=== PATIENT | female | born 1990 | race Caucasian/White ===

== ENCOUNTER 2019-08-26 09:12 | Outpatient (RCR) | payer BC, SELFPAY ==
[2019-07-30 16:20] VITALS: BP 120/66; PULSE 91
[2019-08-06 16:56] VITALS: BP 99/57; PULSE 90
[2019-08-13 16:43] VITALS: BP 109/59; PULSE 86
[2019-08-19 10:18] VITALS: BP 111/64; PULSE 93
--- NOTE | 2019-08-19 10:18 | PC.NURSE ---
Occasional contractions seen on monitor. Pt states that she feels occasional contractions, but nothing regular or painful.
[2019-08-26 09:43] VITALS: BP 120/66; PULSE 81
== END 2019-10-17 14:35 | disposition home or self-care (01) ==
LOC: ANHOBOP 09:12
PROVIDERS: PCP Family Medicine; Visit Provider Obstetrics & Gynecology
DX: O69.89X0 Labor and delivery complicated by other cord complications, not applicable or unspecified (principal); Z3A.34 34 weeks gestation of pregnancy; Z3A.35 35 weeks gestation of pregnancy; Z3A.36 36 weeks gestation of pregnancy; Z3A.37 37 weeks gestation of pregnancy
CPT/HCPCS: 59025

== ENCOUNTER 2019-09-03 10:53 | Outpatient (CLI) | payer BC, SELFPAY ==
[2019-09-03 11:18] LABS: Hematocrit 38.1 % (37.0-47.0); Hemoglobin 12.7 g/dL (12.0-15.0); Mean Corpuscular HGB Conc 33.3 g/dl (32-36); Mean Corpuscular Hemoglobin 29.9 pg (26-34); Mean Corpuscular Volume 89.6 fl (80-100); Mean Platelet Volume 10.2 fl (7.4-10.4); Platelet Count Result 250 k/mm3 (150-375); Red Blood Count 4.25 M/mm3 (4.2-5.4); Red Cell Distribution Width 13.6 % (11.5-14.5); White Blood Count 11.5 K/mm3 (4.5-10.0)
--- NOTE | 2019-09-03 23:23 | PM.IMHP ---
H&P: HPI History of Present Illness Chief complaint: C/S Narrative: 29-year-old 3 para 2001 at 39 1/7 weeks, due on 09/10/19 based on ultrasound exam at 7 weeks 6 days gestation. Her last menstrual period was uncertain. Her was complicated by the early diagnosis of a vanishing twin. Ultrasound exam at 20 weeks demonstrated a single umbilical artery, so she has been followed with ultrasound and nonstress testing. Her has been otherwise uncomplicated. Because a previous child had pulmonary stenosis and an ASD, she had a echocardiogram, which appeared to be normal. Ultrasound exam in our office suggests normal anatomy. Blood type is Opos, she is Rubella Immune, Hep B SAg negative, RPR negative and HIV negative. Testing for gonorrhea and chlamydia has been negative as well. GBS culture was positive. GCT was normal at 88. Her CFS was negative previously. She declined aneuploidy screening in this . Review of Systems Review of Systems: All systems reviewed & are unremarkable except as noted in HPI and below PMFSH Surgical History Surgical History (Updated 09/03/19 @ 23:32 by Ezequiel Kim MD) History of delivery Hx of inguinal hernia repair Family History Family History Mother Hypertension Sibling Depression Father Borderline diabetes mellitus Daughter Heart murmur Atrial septal defect Pulmonary valve stenosis Other Diabetes mellitus Social History Social History Smoking status: Never smoker Alcohol intake: never Substance use: never Spiritual care concerns: No Comments Past OB: x 2 with larger 8#9oz. Past DRYWALL FINISHER FOREMAN: Menarche at 10 with menses every 30-35 days. No history of abnormal pap or of STI. Allergies: Sulfa causes HIVES. Meds Home Medications and Allergies Home Medications Medication Instructions Recorded Confirmed Type PNV cmb#95-ferrous fumarate-FA 1 tablet PO DAILY 08/14/19 08/14/19 History [] famotidine [Pepcid AC] 20 mg PO BID 08/14/19 08/14/19 History Allergies Allergy/AdvReac Type Severity Reaction Status Date / Time Sulfa (Sulfonamide Allergy Intermediate Hives Verified 08/14/19 15:44 Antibiotics) H&P: Results Labs Labs: Short CBC 09/03/19 Range/Units 11:11 WBC 11.5 H (4.5-10.0) K/mm3 Hgb 12.7 (12.0-15.0) g/dL Hct 38.1 (37.0-47.0) % Plt Count 250 (150-375) k/mm3 Assessment and Plan Assessment and plan (1) History of delivery, currently : Code(s): O34.219 - Maternal care for unspecified type scar from previous delivery Status: Acute Assessment and Plan: I have offered her a repeat . She understands risks of surgery to include risks of anesthesia, risks of pain, infection, bleeding, blood products, thromboembolic phenomena and damage to adjacent structures such as bowel, bladder, ureters, blood vessels and nerves. She understands all these risks and elects to proceed with surgery. (2) GBS (group B Streptococcus carrier), +RV culture, currently : Code(s): O99.820 - Streptococcus B carrier state complicating Status: Acute Assessment and Plan: Covered by preoperative cefazolin.
[2019-09-04 09:00] LABS: Rapid Plasma Reagin Non-Reactive (NonReactive)
== END 2019-09-03 10:54 | disposition home or self-care (01) ==
PROVIDERS: PCP Family Medicine; Visit Provider Obstetrics & Gynecology
DX: Z34.93 Encounter for supervision of normal pregnancy, unspecified, third trimester (principal); Z3A.00 Weeks of gestation of pregnancy not specified
CPT/HCPCS: 36415; 85027; 86592; 86850; 86900; 86901

== ENCOUNTER 2019-09-04 11:21 | Inpatient (IN) | payer BC, SELFPAY ==
--- NOTE | 2019-08-14 16:07 | PC.NURSE ---
VERIFIED WITH OR SCHEDULE AND PATIENT --C/S ON 09/04/19 AT 1330 PATIENT GIVEN REQUISITION FOR LAB DRAW ON 09/03/19
--- NOTE | 2019-09-03 23:23 | P.HP_ITS ---
H&P: HPI History of Present Illness Chief complaint: C/S Narrative: 29-year-old 3 para 2001 at 39 1/7 weeks, due on 09/10/19 based on ultrasound exam at 7 weeks 6 days gestation. Her last menstrual period was uncertain. Her was complicated by the early diagnosis of a vanishing twin. Ultrasound exam at 20 weeks demonstrated a single umbilical artery, so she has been followed with ultrasound and nonstress testing. Her has been otherwise uncomplicated. Because a previous child had pulmonary stenosis and an ASD, she had a echocardiogram, which appeared to be normal. Ultrasound exam in our office suggests normal anatomy. Blood type is Opos, she is Rubella Immune, Hep B SAg negative, RPR negative and HIV negative. Testing for gonorrhea and chlamydia has been negative as well. GBS culture was positive. GCT was normal at 88. Her CFS was negative previously. She declined aneuploidy screening in this . Review of Systems Review of Systems: All systems reviewed & are unremarkable except as noted in HPI and below PMFSH Surgical History Surgical History (Updated 09/03/19 @ 23:32 by Ezequiel Kim MD) History of delivery Hx of inguinal hernia repair Family History Family History Mother Hypertension Sibling Depression Father Borderline diabetes mellitus Daughter Heart murmur Atrial septal defect Pulmonary valve stenosis Other Diabetes mellitus Social History Social History Smoking status: Never smoker Alcohol intake: never Substance use: never Spiritual care concerns: No Comments Past OB: x 2 with larger 8#9oz. 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 No history of abnormal pap or of STI. Allergies: Sulfa causes HIVES. Meds Home Medications and Allergies Home Medications Medication Instructions Recorded Confirmed Type PNV cmb#95-ferrous fumarate-FA 1 tablet PO DAILY 08/14/19 08/14/19 History [] famotidine [Pepcid AC] 20 mg PO BID 08/14/19 08/14/19 History Allergies Allergy/AdvReac Type Severity Reaction Status Date / Time Sulfa (Sulfonamide Allergy Intermediate Hives Verified 08/14/19 15:44 Antibiotics) H&P: Results Labs Labs: Short CBC 09/03/19 Range/Units 11:11 WBC 11.5 H (4.5-10.0) K/mm3 Hgb 12.7 (12.0-15.0) g/dL Hct 38.1 (37.0-47.0) % Plt Count 250 (150-375) k/mm3 Assessment and Plan Assessment and plan (1) History of delivery, currently : Code(s): O34.219 - Maternal care for unspecified type scar from previous delivery Status: Acute Assessment and Plan: I have offered her a repeat . She understands risks of surgery to include risks of anesthesia, risks of pain, infection, bleeding, blood products, thromboembolic phenomena and damage to adjacent structures such as bowel, bladder, ureters, blood vessels and nerves. She understands all these risks and elects to proceed with surgery. (2) GBS (group B Streptococcus carrier), +RV culture, currently : Code(s): O99.820 - Streptococcus B carrier state complicating Status: Acute Assessment and Pl
[2019-09-04] VITALS (62 sets, daily range): BP systolic 69–131; BP diastolic 34–83; PULSE 71–124; RESP 16–20; TEMP 36.1–36.7; O2SAT 96–100; BMI 43.0
--- NOTE | 2019-09-04 12:03 | WPDANESEPPF ---
Anes - Initial Pre Proc Eval Procedure: Operation Date: 09/04/19 13:30 Proposed Procedures p Repeat Section - Ezequiel Kim MD Date/Time: 09/04/19 12:03 Surgeon: Ezequiel Kim MD Pre Op Diagnosis: C SECTION Patient Data Age: 29 Gender: F Height: Weight: Last Vital Signs Pulse 82 09/04/19 11:49 BP 117/68 09/04/19 11:49 Pulse Ox 99 09/04/19 11:58 Allergies Allergy/AdvReac Type Severity Reaction Status Date / Time Sulfa (Sulfonamide Allergy Intermediate Hives Verified 08/14/19 15:44 Antibiotics) Home Medications Medication Instructions Recorded Confirmed Type PNV cmb#95-ferrous fumarate-FA 1 tablet PO DAILY 08/14/19 08/14/19 History [] famotidine [Pepcid AC] 20 mg PO BID 08/14/19 08/14/19 History Patient hx anesthesia problems: post op nausea/vomiting Family hx anesthesia problems: none PMFSH Surgical History Surgical History History of delivery Hx of inguinal hernia repair Family History Family History Mother Hypertension Sibling Depression Father Borderline diabetes mellitus Daughter Heart murmur Atrial septal defect Pulmonary valve stenosis Other Diabetes mellitus Social History Social History Smoking status: Never smoker Alcohol intake: never Substance use: never Spiritual care concerns: No Anes - Eval Final PreProcedure Day of Procedure 09/04/19 12:03 Patient weight: morbidly obese Heart: regular rate and rhythm Lungs: clear to auscultation Airway: Mallampati scale class 1 Neurological: alert and oriented Last oral intake: >/= 8 hours ASA classification: III Emergent: no Anesthetic plan: proceed Anesthesia type and monitoring: regional spinal and standard monitoring Informed Consent: The patient's anesthetic plan and its attendant risks and benefits were discussed with the patient/family/POA. Questions were solicited and answers provided to the satisfaction of the patient/family/POA.
[2019-09-04] MEDS: LACTATED RINGERS 1,000 ML 125 ML IV CONT (12:15)
--- NOTE | 2019-09-04 12:16 | LDADM ---
This patient, Karey Sparks, was admitted to Labor/Delivery/Recovery 120 on 09/04/19 at 11:21. Plans for labor, pain management and were discussed with patient. Patient/family oriented to hospital policies and general routines including ID bracelet, bed and alarms, visiting hours, pain management, procedures, bathroom and other care routines, personal items, smoking policy, room service/diet and guest tray routines, security routines, call light, and visiting hours. Patient/Family are encouraged to report perceived risks to care and to ask questions if they do not understand what they are told or what they should do. See OBIX for further documentation.
[2019-09-04] MEDS: LACTATED RINGERS 1,000 ML 999 ML IV CONT (12:32)
[2019-09-04] MEDS: ceFAZolin 3 GM/D5W 100 ML 100 ML IVPB (12:52)
--- NOTE | 2019-09-04 12:56 | WPDHPUPDATE1 ---
History and Physical Update Update Date/Time: 09/04/19 12:56 History and Physical has been reviewed, including an updated exam of the patient. There are NO changes in the patient's condition. Risks, benefits, and alternatives have been discussed and questions answered. Patient agrees to proceed with procedure.
--- NOTE | 2019-09-04 14:21 | PM.OBPRVD ---
OB - Delivery Note Procedure Delivery date: 09/04/19 Procedure: Procedures Operation Date: 09/04/19 13:30 Actual Procedures Side Surgeon p Section Ezequiel Kim MD Repeat LTCS Specimen: Yes (cord blood, placenta) Estimated blood loss (mL): 350 Anesthesia type: Spinal Disposition: PACU Complications: None Narrative: The patient was taken to the operating room where she was prepared and draped in the usual sterile fashion in dorsal supine position with a leftward tilt. She received cefazolin preoperatively. Spinal anesthesia was found to be adequate. A Pfannenstiel skin incision was made along the previous scar line and was carried through to the underlying layer of the fascia. The fascia was incised in the midline and the incision was extended laterally. The fascia was dissected free of the underlying rectus muscles. The rectus muscles were in the midline. The peritoneum was identified, tented up and entered sharply. The peritoneal incision was extended superiorly and inferiorly with good visualization of the bladder. The bladder blade was placed. The vesicouterine peritoneum was identified, tented up and entered sharply. The incision was extended laterally and the bladder flap was developed. The bladder blade was replaced. The uterus was then incised sharply in a transverse fashion along the lower uterine segment. The incision was extended laterally. The infant's head was delivered atraumatically to the sterile field, followed by the body. The nose and mouth were bulb suctioned. After a delay, the cord was clamped and cut. The infant was handed off the field. Cord blood was collected. The placenta was removed manually and was passed off the field. The uterus was exteriorized and cleared of all clots and debris. The uterine incision was reapproximated using 0 Monocryl in a running, locked fashion. Excellent hemostasis resulted as did excellent reapproximation of the normal anatomy. The uterus was returned the abdomen. The pelvis was irrigated copiously with warmed normal saline. Rigorous hemostasis was assured. The fascial layer was reapproximated using 0 Vicryl in a running fashion. The skin was closed with a running, subcuticular stitch of 4 0 Vicryl. Dermaflex was applied externally. Sponge, lap, needle and instrument counts were correct. The patient was taken to the recovery room in stable condition. The went to the nursery in stable condition. I was present and scrubbed the entire procedure. Baby Date of : 09/04/19 Time of : 14:22 Weeks of gestation at delivery: 39 Infant gender: Male Weight (pounds): 7 Weight (ounces): 9 Placenta delivery description: Manual Removal and Normal Configuration cord vessel description: 2 Vessels score one minute: 8 score five minutes: 9
--- NOTE | 2019-09-04 14:26 | PM.OBDSVD ---
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 Status: Acute OB - DS: Summary OB Procedures : None OB Procedures Intrapartum: Spontaneous Vag Delivery OB Procedures: : None Peripartum Data Procedures: Procedures Operation Date: 09/04/19 13:30 Actual Procedures Side Surgeon p Section Ezequiel Kim MD Time Spent with Patient Time attestation: Total time spent providing and/or coordinating discharge services: Discharge Plan Discharge Attending physician on discharge: Ezequiel Kim Consulting providers: Arnel Aly Discharging Clinician: Ezequiel Kim Patient Disposition: Home, Self-Care Activity: may shower, may drive after 2 weeks and pelvic rest Diet: regular Wound Care Instructions: incision open to air Discharge Instructions: Call or return if temperature above 100.4? F, increased abdominal pain, increased vaginal bleeding or any new problems. Education: Mom and Baby Guide Given to: Mother Follow-Up: Call your delivering provider's office for an appointment to be seen in: 1 Week Mom and baby should come to the [facility] for the follow-up appointment. Appointment Date/Time: September 09, 2019 at 11:00 am What to expect at your follow-up visit: Physical Assessment Call [phone] if you are unable to keep your appointment time. BREAST CARE: 1. Wear a snug supportive bra. 2. For engorgement discomfort: Breast Feeding: A. Apply warm moist washcloths B. Express milk as needed to relieve engorgement C. Wear loose clothing 3. For sore nipples: A. Identify correct latch-on B. Apply warm moist washcloths before and after nursing C. Air dry nipples after nursing D. May apply Lansinoh cream to nipples ABDOMINAL INCISION: (if applicable) 1. Allow incision to air dry 2. Do NOT use lotions for powders on your incision 3. When showering, allow soap and water to run over the incision, but do not wash incision EPISIOTOMY/PERINEAL CARE: 1. Until bleeding stops, use your roverto bottle after urinating 2. Change your pad frequently throughout the day 3. No tub baths until seen by your physician - You may shower ACTIVITY: 1. Rest as much as possible. 2. Do not exercise or lift anything heavier than your baby (such as laundry or other children.) 3. Avoid stairs or driving as much as possible. 4. Do not put anything into the vagina. No douching, tampons, or sexual activity until seen by physician. NOTIFY PHYSICIAN IF YOU HAVE ANY QUESTIONS OR IF ANY OF THE FOLLOWING SYMPTOMS OCCUR: 1. If your incision becomes red, swollen, or more painful than what you have experienced in the hospital. 2. If your vaginal bleeding becomes foul smelling. 3. If your vaginal bleeding becomes more heavy than a period or if your bleeding changes from pink to bright red. However, you may pass an occasional walnut-sized clot once or twice for the first week . 4. If you experience a sharp, shooting pain in you calves. 5. If you discover a hard, reddened area on your breast or if you experience flu-like symptoms. DIET: 1. Eat regular, well-balanced meals. 2. Drink plenty of fluids daily. If , drink to thirst. Stand Alone Forms: General Discharge Information Follow-up/Referrals: Ezequiel Kim MD [Physician]
[2019-09-04] MEDS: LORATADINE 10 MG TABLET PO (14:39)
[2019-09-04] MEDS: LACTATED RINGERS 1,000 ML 30 ML IV CONT (14:54)
[2019-09-04] MEDS: DOCUSATE SODIUM 100 MG CAPSULE PO (17:55)
[2019-09-04] MEDS: IBUPROFEN 600 MG TABLET PO (17:56)
--- NOTE | 2019-09-04 18:22 | OBPPTRN ---
Patient transferred to post room # 291 via stretcher. Oriented to unit, room, information board, rooming in, admission packet and security measures. Patient verbalizes understanding.
[2019-09-04] MEDS: DEXTROSE 5%/0.45% SOD CHL 1,000 ML 125 ML IV CONT (19:50)
[2019-09-05] MEDS: IBUPROFEN 600 MG TABLET PO ×3 (04:32→19:30)
[2019-09-05 05:25] LABS: Basophils Percent Auto 0.3 % (0.2-1.2); Eosinophils Absolute Auto 0.1 K/mm3 (0-0.3); Eosinophils Percent Auto 0.5 % (0-4.4); Hemoglobin 11.9 g/dL (12.0-15.0); Immature Granulocyte Absolute 0.17 K/mm3 (0.00-0.031); Immature Granulocyte Percent A 1.3 % (0-0.5); Lymphocytes Absolute Auto 1.84 K/mm3 (0.9-3.2); Lymphocytes Percent Auto 14.3 % (18.3-44.2); Mean Corpuscular HGB Conc 33.1 g/dl (32-36); Mean Corpuscular Hemoglobin 29.7 pg (26-34); Mean Corpuscular Volume 89.8 fl (80-100); Mean Platelet Volume 10.1 fl (7.4-10.4); Monocytes Absolute Auto 1.1 K/mm3 (0.1-0.6); Monocytes Percent Auto 8.2 % (2.6-8.5); Neutrophils Absolute Auto 9.7 K/mm3 (1.3-6.7); Neutrophils Percent Auto 75.4 % (45.5-73.1); Platelet Count Result 218 k/mm3 (150-375); Red Blood Count 4.01 M/mm3 (4.2-5.4); Red Cell Distribution Width 13.6 % (11.5-14.5); White Blood Count 12.9 K/mm3 (4.5-10.0)
[2019-09-05 05:45] VITALS: BP 116/71; PULSE 101; RESP 14; TEMP 36.4; O2SAT 97
[2019-09-05 07:33] VITALS: BP 106/66; PULSE 87; RESP 16; TEMP 36.9; O2SAT 98
--- NOTE | 2019-09-05 08:32 | WPDANLDPN2 ---
Anes-Prog Note L&D Date/Time: 09/05/19 08:32 Comfortable throughout: section Neuraxial method: spinal Epidural/Spinal procedure site: clean & non-tender Neuro status: Neuro function grossly intact. Cardiovascular status: normal Respiratory status: normal Airway patency: baseline Mental status: baseline Post-Op hydration status: normal Vital Signs: Last Vital Signs Temp 36.9 C 09/05/19 07:33 Pulse 87 09/05/19 07:33 Resp 16 09/05/19 07:33 BP 106/66 09/05/19 07:33 Pulse Ox 98 09/05/19 07:33 I/O: Intake & Output 09/04/19 09/05/19 09/05/19 23:59 07:59 15:59 Intake Total 1750 1000 Output Total 2222 2400 Balance -472 -1400 Patient feedback: Patient satisfied with anesthetic care.
--- NOTE | 2019-09-05 08:32 | WPDANLDNPN2 ---
Anes-Prog Note L&D-Neuraxial Date/Time: 09/05/19 08:32 Neuraxial medications: intrathecal PF morphine Opiod-related complaints: none Patient feedback: Patient satisfied with post-operative pain management.
[2019-09-05] MEDS: DOCUSATE SODIUM 100 MG CAPSULE PO ×2 (09:11→16:12)
[2019-09-05] MEDS: MULTIVIT/MIN/PREN/FOL AC/IRON TABLET 1 TAB PO (09:11)
[2019-09-05] MEDS: SIMETHICONE 80 MG TAB.CHEW PO ×2 (09:12→12:43)
[2019-09-05 12:05] VITALS: BP 125/63; PULSE 93; RESP 18; TEMP 36.3; O2SAT 97
--- NOTE | 2019-09-05 13:45 | PC.NURSE ---
Consult with pt., mother reports is eagerly latching, she has some discomfort with first latch that will quickly resolve. Reviewed infant feeding cues, frequencies, duration of feedings, feeding elimination flow sheet, and signs of adequate intake. Demonstrated stimulation techniques to wake infant for feeding. Nipple care reviewed. Requested mother to call out next feeding. Instructed feeding should be initiated three hours from start of last feeding or if feeding cues are noted before. Mother voiced understanding of information shared.
[2019-09-05] MEDS: TETANUS,DIPHTHERIA,AC PERTUSSIS ADULT 0.5 ML (ADACEL) IM (16:06)
[2019-09-05 19:00] VITALS: BP 117/64; PULSE 92; RESP 16; TEMP 36.3; O2SAT 98
[2019-09-06] MEDS: IBUPROFEN 600 MG TABLET PO ×2 (03:05→11:38)
--- NOTE | 2019-09-06 07:56 | P.DS_ITS ---
OB - DS: Summary OB Procedures : None OB Procedures Intrapartum: OB Procedures: : None Peripartum Data Delivery Method: Section Procedures: Procedures Operation Date: 09/04/19 13:30 Actual Procedures Side Surgeon p Section Ezequiel Kim MD complications: none Status at Discharge Functional status at discharge: independent ambulation Overall status at discharge: patient is progressing back to baseline Time Spent with Patient Time attestation: Total time spent providing and/or coordinating discharge services: Time spent: Less than 30 minutes Exam Const: General: comfortable and no acute distress Resp: Effort & Inspection: normal respiratory effort Auscultation: clear to auscultation bilaterally Cardio: Rate: regular rate GI: Inspection: non-distended GI Palp: Yes Soft to palpation, No Firmness to palpation present (GI), Yes Tenderness to palpation present (GI) (mild tenderness over incision ) and No Guarding due to palpation present (GI) Auscultation: normal bowel sounds Psych: Appearance: grossly normal Mental Status: mental status grossly normal Discharge Plan Discharge Attending physician on discharge: Ezequiel Kim Discharging Clinician: Ezequiel Kim Patient Disposition: Home, Self-Care Activity: may shower, may drive after 2 weeks and pelvic rest Diet: regular Wound Care Instructions: incision open to air Discharge Instructions: Call or return if temperature above 100.4? F, increased abdominal pain, increased vaginal bleeding or any new problems. Stand Alone Forms: General Discharge Information Follow-up/Referrals: Ezequiel Kim MD [Physician] - (4 weeks) Discharge Medications: New ibuprofen 600 mg tablet 600 mg PO Q6H PRN (Reason: cramps) Qty: 30 RF: 0 hydrocodone-acetaminophen [[place]] 5-325 mg tablet 1 - 2 tablet PO Q6H PRN (Reason: pain) Qty: 30 RF: 0 docusate sodium 100 mg Capsule 100 mg PO BID Qty: 30 RF: 0 acetaminophen [[place] (acetaminophen)] 325 mg Tablet 650 mg PO Q6H PRN (Reason: Mild Pain (1-3)) Qty: 30 RF: 0 ibuprofen 600 mg Tablet 600 mg PO Q6H PRN (Reason: Cramping) Qty: 30 RF: 0 Kop-C-Btgytv Cream 1 applic topical PRN PRN (Reason: Sore Nipples) Qty: 1 RF: 0 Continued famotidine [Pepcid AC] 20 mg Tablet 20 mg PO BID RF: 0 PNV cmb#95-ferrous fumarate-FA [] 28 mg iron- 800 mcg Tablet 1 tablet PO DAILY RF: 0 Date of admission: 09/04/19 11:21 Primary Care Provider: Amanda Gallardo Admitting Provider: Ezequiel Kim Attending physician on admission: Ezequiel Kim
[2019-09-06] MEDS: MULTIVIT/MIN/PREN/FOL AC/IRON TABLET 1 TAB PO (08:03)
[2019-09-06] MEDS: DOCUSATE SODIUM 100 MG CAPSULE PO (08:03)
[2019-09-06 09:00] VITALS: BP 103/67; PULSE 78; RESP 18; TEMP 37.7; O2SAT 100
--- NOTE | 2019-09-06 10:00 | PC.NURSE ---
Consulted with patient, mother reports pinching with feeding. Both nipples are sore with slight scabbing to center of nipple. Suggested is not latched as deeply as needed. Reviewed feeding cues, frequencies, duration of feedings, feeding elimination flow sheet, and signs of adequate intake. Demonstrated stimulation techniques to wake infant for feeding. Assisted with infant to breast. Reviewed positioning/alignment in football, holding breast in C hold and guided asymmetrical latch on. Discussed rational for each. Mother has a large nipple, suggested rolling before attempting infant to latch. Infant was able to latch correctly within a few attempts. Infant had bottom lip rolled in, demonstrated how to adjust lip while feeding. nursed eagerly, with steady draws and frequent swallowing noted. Reviewed signs of a correct latch, effective nursing and suck swallow ratio. Infant was unable to maintain latch without discomfort to mother. Nipple care reviewed. Instructed mother to call out for RN assistance if she is unable to latch for feeding or she has discomfort with nursing. Instructed feeding should be initiated three hours from start of last feeding or if feeding cues are noted before. Mother voiced understanding of information shared.
--- NOTE | 2019-09-06 13:15 | PC.NURSE ---
Patient received instruction on viewing the discharge video Mother & Baby Care, The First Two Weeks online. Patient was given the opportunity and encouraged to ask questions. Patient verbalized understanding of information shared and has been given the mother/baby guide for home reference.
[2019-09-09 11:27] VITALS: BP 120/61; PULSE 87; RESP 18; TEMP 36.7
== END 2019-09-06 14:42 | disposition home or self-care (01) | DRG 788 ==
LOC: ANHLDR 14:28 → ANHOB2 09-06 12:54 → ANHLDR 09-09 11:54 → ANHOB2 09-09 11:54
PROVIDERS: Admitting Provider Obstetrics & Gynecology; PCP Family Medicine; Visit Provider Student in an Organized Health Care Education/Training Program
PROC: 10D00Z1 Extraction of Products of Conception, Low, Open Approach (ICD-10-PCS; CPT 59514; principal; 2019-09-04 13:30)
DX: O34.211 Maternal care for low transverse scar from previous cesarean delivery (principal); Z37.0 Single live birth; Z3A.39 39 weeks gestation of pregnancy; O99.824 Streptococcus B carrier state complicating childbirth; O69.89X0 Labor and delivery complicated by other cord complications, not applicable or unspecified; O99.214 Obesity complicating childbirth; E66.01 Morbid (severe) obesity due to excess calories
CPT/HCPCS: 36415; 85025; 88307; 90715; A9270; J0131; J0690; J2274; J2590; J7120

== ENCOUNTER 2021-11-23 16:42 | Emergency (ER) | payer BC, SELFPAY ==
[2021-11-23 16:47] VITALS: BP 136/77; PULSE 87; RESP 20; TEMP 36.6; O2SAT 100
--- NOTE | 2021-11-23 17:54 | ED.FEMALEGU ---
HPI - Female Genitourinary General Chief complaint: Urogenital-Female Stated complaint: Urinary Problem Time Seen by Provider: 11/23/21 17:54 Source: patient, RN notes reviewed and old records reviewed Mode of arrival: ambulatory Limitations: no limitations History of Present Illness HPI Narrative: 31-year-old female who presents to [facility] care with complaints of yesterday starting to have bilateral flank pain and today noting frequency and urgency and burning with urination she states also today she noted some blood in her urine and she has had some suprapubic tenderness.Patient denies any known fevers,no chills or sweats , no nausea or vomiting stated.Patient reports that she has no vaginal discharge or any itching, denies any any concern for STD exposure MD elicited complaint: dysuria and UTI Onset (ago): day(s) (1) Location of symptoms: suprapubic and flank Related Data Home Medications Medication Instructions Recorded Confirmed famotidine [Pepcid AC] 20 mg PO BID PRN 08/14/19 11/23/21 Allergies Allergy/AdvReac Type Severity Reaction Status Date / Time Sulfa (Sulfonamide Allergy Intermediate Hives Verified 11/23/21 17:07 Antibiotics) Review of Systems Review of Systems: CONSTITUTIONAL: Denies fever, chills, or sweats. EYES: Denies visual changes, redness, or discharge. ENT: Denies rhinorrhea, congestion, sore throat, or otalgia. CARDIOVASCULAR: Denies chest pain, palpitations, or edema. RESPIRATORY: Denies cough or dyspnea. GASTROINTESTINAL: Reports some suprapubic abdominal pain,no nausea, vomiting, or diarrhea. GENITOURINARY: Positive for dysuria or hematuria. SKIN: Denies rash or itching. MUSCULOSKELETAL: Denies back pain, joint pain, or myalgia. NEUROLOGIC: Denies headache, numbness, or weakness. PSYCHIATRIC: Denies anxiety or depression. All systems reviewed & are unremarkable except as noted in HPI and below PMFSH Past Medical History Medical History GBS (group B Streptococcus carrier), +RV culture, currently Two vessel umbilical cord Surgical History Surgical History History of delivery History of delivery, currently History of sleeve gastrectomy Hx of inguinal hernia repair Family History Family History Mother Hypertension Sibling Depression Father Borderline diabetes mellitus Daughter Heart murmur Atrial septal defect Pulmonary valve stenosis Other Diabetes mellitus Social History Social History Smoking status: Never smoker Alcohol intake: never Substance use: never Spiritual care concerns: No Comments At time of signature, agree with nursing past medical, surgical, social and family history. There is no relevant family history pertinent to the presenting complaint Exam Narrative: GENERAL: Well-appearing, well-nourished, and in no acute distress. HEAD: Normocephalic, atraumatic. EYES: PERRLA and EOMI. ENT: Nares clear, no rhinorrhea or epistaxis. Mucous membranes moist.TM's normal with good light reflex, throat pink with no lesions or exudates or tonsil swelling NECK: Supple.no lymphadenopathy CHEST: Clear to auscultation. No respiratory distress.SAO2 100% on room air HEART: Regular rate and rhythm. No murmur heard. Normal peripheral pulses. ABDOMEN: Soft, nontender, nondistended, normal active bowel sounds,some suprapubic tenderness, no CVA tenderness on exam at this time EXTREMITIES: Normal range of motion. No edema. SKIN: Warm, dry, no rash. NEURO: No focal deficits. Alert and oriented x3. Course Course Level of Care: Express Care Visit Vital Signs Vital signs: Vital Signs Temperature 36.6 C 11/23/21 16:47 Pulse Rate 87 11/23/21 16:47 Respiratory Rate 20 11/23/21 16:47 Blood Pressure 136/7
== END 2021-11-23 18:10 | disposition home or self-care (01) ==
PROVIDERS: Emergency Provider Registered Nurse; PCP Family Medicine
DX: N39.0 Urinary tract infection, site not specified (principal)
CPT/HCPCS: 81003; 87077; 87086; 87088; 87186; 99213; G0463

== ENCOUNTER → 2022-07-01 09:47 | Outpatient (CLI) | payer BC, SELFPAY ==
--- NOTE | ~2022-07-01 | US_ITS ---
Renal-Bladder ultrasound Clinical History: Flank pain Technique: Real-time sonographic imaging of the kidneys and urinary bladder was performed. Findings: The right kidney measures 12.8 cm in length and the left kidney measures 13.1 cm. There is no hydronephrosis or renal calculus identified. Renal cortical echogenicity is within normal limits. No renal mass lesion is identified. The urinary bladder is moderately distended at the time of this exam. No intraluminal echoes are iden tified. No abnormal wall thickening is seen. Impression: Unremarkable ultrasound of the kidneys and urinary bladder. Reviewed, dictated and finalized at location [] [employer] [employer] Impression: Unremarkable ultrasound of the kidneys and urinary bladder.
== END ==
PROVIDERS: PCP Family Medicine; Visit Provider Family Medicine
DX: R10.9 Unspecified abdominal pain (principal); G89.29 Other chronic pain
CPT/HCPCS: 76775

== ENCOUNTER 2023-04-24 16:43 | Emergency (ER) | payer BC, SELFPAY ==
--- NOTE | ~2023-04-24 | XR_ITS ---
EXAM: XR hand LT min 3V DATE: 04/24/2023 16:55 HISTORY: left hand swelling pain over 4th/5th metacarpals. . COMPARISON: None available. FINDINGS: Normal mineralization. Oblique fracture of the proximal aspect of the left fifth metacarpa l with mild anterior angulation. No lytic or blastic lesion. Joint spaces are maintained. No erosion or periosteal change. Soft tissue swelling over the fracture site. IMPRESSION: Oblique mildly angulated fracture of the proximal aspect of the left fifth metacarpal. Reviewed, dictated and finalized at location K. IMPRESSION: Oblique mildly angulated fracture of the proximal aspect of the lef t fifth metacarpal.
--- NOTE | 2023-04-24 16:44 | ED.UPPEXIN ---
HPI - Extremity Injury (Upper) General Chief Complaint: Extremity Injury, Upper Stated Complaint: Injured hand Time Seen by Provider: 04/24/23 16:43 Source: patient Mode of arrival: ambulatory Limitations: no limitations History of Present Illness HPI narrative: Karey is a 33-year-old female patient presenting to the clinic today with complaints of a left hand injury that occured yesterday when she was playing football. She reports she fell while playing football and landed on the left hand. Has pain and swelling to the left hand over the 4th/5th metacarpals. Related Data Home Medications Medication Instructions Recorded Confirmed famotidine 20 mg tablet (Pepcid AC) 20 mg PO BID PRN Indigestion 08/14/19 04/24/23 multivitamin with minerals-folic 1 tablet PO DAILY 06/23/22 04/24/23 acid 200 mcg chewable tablet (Women's Multivitamin Gummies) Allergies Allergy/AdvReac Type Severity Reaction Status Date / Time Sulfa (Sulfonamide Allergy Intermediate Hives Verified 04/24/23 16:48 Antibiotics) Review of Systems Review of Systems: Pertinent positives per HPI. Patient denies any fever, chills, rash, headache, visual changes, dizziness, cough, runny nose, sore throat, shortness of breath, chest pain, palpitations, nausea, vomiting, diarrhea, constipation, abdominal pain, or any urinary issues. [facility] Past Medical History Medical History GBS (group B Streptococcus carrier), +RV culture, currently Two vessel umbilical cord Surgical History Surgical History History of delivery History of delivery, currently History of sleeve gastrectomy 2020 Hx of inguinal hernia repair Family History Family History Mother Hypertension Sibling Depression Father Borderline diabetes mellitus Daughter Heart murmur Atrial septal defect Pulmonary valve stenosis Other Diabetes mellitus Social History Social History Smoking status: Never smoker Alcohol intake: never Substance use: never Lack of Transportation: No Lack of Food: Never True Current Housing: I Have Housing Concerned About Future Housing: No Difficulty Paying Gas/Electric Bills: No Difficulty Paying for Meds: No Currently Unemployed: No Education: Bachelor's Degree Difficulty w/ Childcare or Family Care: No Spiritual care concerns: No Comments At the time of my signature, I reviewed and agree with the nursing past medical, surgical, social, and family history. There is no relevant family history pertinent to the patient complaint. Exam Narrative: General: Well-developed, well nourished, in no apparent distress Head: Normocephalic, atraumatic. Cardio: Regular rate and rhythm, s1 and s2 normal, no murmur appreciated. Resp: Clear to auscultation bilaterally, no rhonchi, rales, wheezing or rubs. Musculoskeletal: No deformity, of the swelling and bruising noted over the 4th and 5th metacarpals to the left hand, tender to palpation over over the 4th and 5th metacarpals, limited range of motion over the 5th and 4th metacarpals/-fingers due to pain, muscle strength strong and equal, peripheral pulse strong,no cyanosis, normal gait and station Course Course Emergency Course: Portions of this record may have been created with voice recognition software. Level of Care: Express Care Visit Vital Signs Vital signs: Vital signs reviewed MDM - Extremity Injury (Upper) MDM Narrative Medical decision making narrative: At the time of visit patient is resting comfortably on the exam table. Left hand x-ray was completed and shows a left 5th base metacarpal fracture. Imaging Data Radiologist's impression: ITS Impressions Hand X-Ray 04/24/23 17:06
[2023-04-24 16:55] VITALS: BP 124/82; PULSE 79; RESP 16; TEMP 36.7; O2SAT 99
== END 2023-04-24 17:27 | disposition home or self-care (01) ==
PROVIDERS: Emergency Provider Nurse Practitioner Family; PCP Family Medicine
DX: S62.317A Displaced fracture of base of fifth metacarpal bone, left hand, initial encounter for closed fracture (principal); Z79.899 Other long term (current) drug therapy; W18.30XA Fall on same level, unspecified, initial encounter; Y93.61 Activity, american tackle football
CPT/HCPCS: 29125; 73130; 99214; A4565; G0463